=== PATIENT | male | born 1965 | race Caucasian/White ===

== ENCOUNTER 2016-11-09 10:00 | Inpatient (IN) | payer OTHER ==
[~2016-11-09] VITALS: Ht 170.2 cm; Wt 88.8 kg
--- NOTE | ~2016-11-09 | DS ---
PATIENT'S NAME: LESTER PHIPPS [facility] AGE: 51 Y [address] ROOM: [address] [address] LOCATION: [facility] ADMIT DATE: 12/01/2016 Discharge Summary DISCHARGE DATE: 12/02/2016 FAMILY PHYSICIAN: Maurisio Mancilla MD ATTENDING PHYSICIAN: Edwar Garland ADMITTING DIAGNOSIS: Left hip degenerative joint disease. PROCEDURE: Left total hip arthroplasty. COMORBIDITIES: Vitamin D deficiency, sciatica to the left side, and left ventricular hypertrophy. HOSPITAL COURSE: The patient was admitted for the [facility] protocol. He had a left total hip arthroplasty performed with a Trident X3 PSL cup, 52 mm, size 5; Accolade 2, high-offset stem with a -5, 36 mm ceramic head. Postoperatively, he received enteric-coated aspirin 325 p.o. b.i.d. for total of 30 days for DVT prophylaxis and has had gastric prophylaxis with Pepcid to cover the same timing as the aspirin administration. His hip surgery was performed with robotic assistance for acetabular component placement. Postoperatively, in the first postoperative day, he was awake, alert, and neurovascular was intact to the operative left leg. Postoperative day 1, hemoglobin was 12.8 and the patient was discharged to home. DISCHARGE INSTRUCTIONS: Follow up with myself in 6-12 days. Follow up with Dr. Castillo the following . Leave Mepilex on until followup appointment. Perform exercises as instructed at the hospital. Follow hip dislocation prevention instructions. Resume prehospitalization medication regimen. DISCHARGE MEDICATIONS: He was sent with the following prescriptions: 1. Percocet 5/325, dispensed 60 one to two p.o. q.6 hours as needed for pain. 2. Flomax 0.4 mg one p.o. q.h.s., dispensed 30. SOFIYA OLSON FOR MD JERICHO RAMÍREZ/shanti /[id number] d: 12/11/16221 t: 12/22/16 0942, DISCHARGE SUMMARY
--- NOTE | ~2016-11-09 | OR ---
PATIENT'S NAME: LESTER PHIPPS [facility] AGE: 51 Y [address] ROOM: [address] [address] LOCATION: [facility] ADMIT DATE: 12/01/2016 OR/Procedure Report DISCHARGE DATE: FAMILY PHYSICIAN: MADELIN FERNANDEZ MD ATTENDING PHYSICIAN: Edwar Garland SURGEON: Edwar Garland MD CLEANER GREASER: SOFIYA Murphy DATE OF PROCEDURE: 12/01/2016 PREOPERATIVE DIAGNOSIS: Osteoarthritis, left hip. POSTOPERATIVE DIAGNOSIS: Osteoarthritis, left hip. PROCEDURE PERFORMED: Operation: Noncemented left total hip replacement, robotic assisted for acetabular placement using Bruno Accolade II #5 high- offset stem with a -5 x 36 mm ceramic head and 52 mm PSL solid cup with 36 mm X3 liner. ANESTHESIA: Subarachnoid block. 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 He has a clinical and radiographic evidence of osteoarthritis of the left hip. DESCRIPTION OF PROCEDURE: The patient was brought to the operating room, and when satisfactory spinal anesthesia had been established, he was placed on his right side with his left side up. Left lower extremity, hip, and hemipelvis were prepped and draped in an aseptic manner. Three Schanz screws were placed in the iliac crests and the array for the [employer] computer was placed onto the three screws. A posterior curvilinear incision was made centered over the greater trochanter and carried down through the subcutaneous fat. The fascia sharmila and fascia gluteus ricardo were divided in line with the skin incision and the short external rotators were exposed. They were cut close to the greater trochanter and the capsule exposed. The capsule was opened in upside down hockey-stick shaped incision and the hip dislocated. The piriformis notch was cleared out and neck was cut finger breadth proximal to the lesser trochanter and the head removed. The neck was lateralized with a box cut chisel and the canal found. Broaching was started with a #1 and carried out to the #5 broach. The acetabulum was then exposed and soft tissue was debrided. The pointer for the [employer] computer was then used to register the acetabulum at multiple points. This was after the baseline was placed superior to the acetabulum. Several attempts were made to register the acetabulum and finally all dots had been registered. The 52 mm reamer was then brought in for the PSL. The cup was reamed down to zero according to [employer] computer. The cup was placed at 40 degrees of abduction and 20 degrees of anteversion. The cup was trialed and the 52 fit well. A 52 PSL solid cup shell PATIENT'S NAME: LESTER PHIPPS [facility] AGE: 51 Y [address] ROOM: [address] [address] LOCATION: [facility] ADMIT DATE: 12/01/2016 OR/Procedure Report DISCHARGE DATE: FAMILY PHYSICIAN: MADELIN FERNANDEZ MD ATTENDING PHYSICIAN: Edwar Garland was then placed on the robotic arm and impacted home. It appeared to be solid so the manhole cover was placed. Trial reduction was performed with 36 mm cup liner trial and a -5 x 36 mm head. The hip was stable at 90 degrees of flexion and 0 degrees of adduction and about 70 degrees of internal rotation. This was accepted. The greater trochanter did clear the pelvis on abduction and external rotation. Distal shuck was about a cm and lateral shuck was probably 5 mm at most. The trials were removed. The manhole cover was placed in a cup. The air of 36 mm cup liner was impacted home. The #5 broach was removed and #5 high-offset stem impacted home. Trial reduction was performed with a -5 head and the hip was actually a little more stable than it had been with the trials. It would dislocate at 90 degrees of flexion with 20 degrees of adduction, and about 60 degrees of internal rotation. This was accepted. The wound was irrigated copiously with saline and closed in layers using interrupted #2 Orthocord to close the capsule. Modified Damian stitch #2 Orthocord was used to repair the piriformis tendon. The remainder of the closure was by SOFIYA Calderon, who closed the fascia sharmila with a running #1 Vicryl. The fascia of the gluteus ricardo with running #1 Vicryl, subcutaneous fat was closed with running 2-0 Vicryl. The skin with skin mona. Dressings were applied. The patient sent to the recovery area having tolerated the procedure well. MD LILY RAMÍREZ/shanti /[id number] d: 12/01/16 1838 t: 12/08/16 1351, OPERATIVE SUMMARY
[2016-11-09] MEDS ORDERED: PRINIVIL (ZESTR20 MG PO (14:21)
--- NOTE | 2016-12-01 14:38 | NUR ---
Introduced self to pt. Instructed him to do 100 ankle pumps/hour and 10 breaths/hour using the Incentive Spirometer. He plans to go home after dismissal, has all necessary equipment.
--- NOTE | 2016-12-02 03:26 | NUR ---
Shift Summary: Patient can ambulate with one assist. Had nausea 1st half of the shift not relieved with Zofran. Gave the one time dose of phenergan and patient taking tylenol only for pain. Straight cathed at 1900 for 1100ml urine due to inablility to void. Voided 350ml around 0200.
[2016-12-02 05:58] LABS: HEMOGLOBIN 12.8 g/dL (12.0-17.0)
[2016-12-02] MEDS ORDERED: TYLENOL EXTRA500 MG PO (14:23)
[2016-12-02] MEDS ORDERED: ASPIRIN325 MG PO (14:24)
[2016-12-02] MEDS ORDERED: FLOMAX0.4 MG PO (14:25)
[2016-12-02] MEDS ORDERED: ROXICODONE 5MG (5 MG PO (14:27)
[2016-12-02] MEDS ORDERED: PERCOCET 5-3251 EACH PO (14:29)
--- NOTE | 2016-12-02 16:03 | NUR ---
Attempted to meet with patient twice today. The first attempt, pt was in joint class and the second attempt pt had already been discharged. CM Gerontology Aide TH.
== END 2016-12-02 15:24 | disposition disaster alternative care site (69) | DRG 470 ==
LOC: G3N 12-01 05:52
PROVIDERS: ADMIT Orthopaedic Surgery
DX: M16.12 Unilateral primary osteoarthritis, left hip (principal); I10 Essential (primary) hypertension; E55.9 Vitamin D deficiency, unspecified; I51.7 Cardiomegaly; E29.1 Testicular hypofunction; R33.9 Retention of urine, unspecified
CPT/HCPCS: C1713; C1776; J0171; J0690; J0735; J1170; J1885; J2001; J2405; J2550; J2795; J7030; J7040; J7120